=== PATIENT | female | born 1995 | race Caucasian/White ===

== ENCOUNTER 2020-09-12 18:49 | Emergency (ER) | payer BC, SELFPAY ==
[2020-09-12 18:55] VITALS: BP 120/74; PULSE 104; RESP 20; TEMP 37; O2SAT 96; BMI 40.7
[2020-09-12 19:09] LABS: UTC Strep Screen (Rapid) Positive (Negative)
--- NOTE | 2020-09-12 19:09 | HMH.EDUTC ---
[facility] Disposition Clinical Impression: Strep throat, Exposure to COVID-19 virus Disposition: Home, Self-Care Condition on Discharge: Good Instructions: DI for Strep Throat, Preventing the Spread of Coronavirus Discharge Instructions Additional Instructions: Drink plenty of fluids. Take tylenol or ibuprofen for pain or fever. Take the medications as directed. Follow up with your regular doctor. GO TO THE ER FOR ANY WORSENING SYMPTOMS Throw your tooth brush away and get a new one. Prescriptions: Ondansetron [Zofran 4mg ODT] 4 mg PO Q8HP PRN #12 tab.rapdis PRN Reason: Nausea Transmission Status: Received by [id number] Amoxicillin [Amoxicillin 500mg Tab] 500 mg PO TID 10 Days #30 tab Transmission Status: Received by [id number] Referrals: Gail Shankar MD [Primary Care Provider] - Forms: Work/School Release Time of Disposition: 19:11 Medical Decision Making - Medical Records Medical records reviewed: No: I reviewed the patient's medical records. - Jeremiah Inquiry Pt receiving controlled substance: No Vital Signs: 09/12/20 18:55 09/12/20 19:16 Temperature 98.6 F 98.6 F Temperature Source Oral Pulse Rate 104 H Pulse Rate [Left Brachial] 104 H Respiratory Rate 20 20 Blood Pressure 120/74 Blood Pressure [Left Arm] 120/74 Blood Pressure Mean [Left Arm] 89 Blood Pressure Source [Left Arm] Automatic Cuff Blood Pressure Position [Left Arm] Sitting 02 Sat by Pulse Oximetry 96 Oxygen Delivery Method Room Air - Lab Data Lab results reviewed: Yes: I reviewed the patient's lab results. Lab Results 09/12/20 19:05: Strep Scn Rapid [facility] Positive A Orders (Tests/Meds): ORDERS Category Date Time Status Covid-19 Nasal PCR Sendout P&C Stat Lab 09/12/20 19:00 Received [facility] HPI - General Stated complaint: COVID TEST-Sore throat,cough,headache Time Seen by Provider: 09/12/20 19:09 Mode of Arrival: Ambulatory Source of Information: Patient Limitations: No Limitations Description of Symptoms (Recalled from Triage Doc. by RN): PATIENT C/O SORE THROAT, HEADACHE, FEVER, AND COUGH SINCE YESTERDAY. REQUESTING COVID TEST HEENT Symptoms (Recalled from RN notes): Yes Resp Symptoms (Recalled from RN notes): Yes Skin Symptoms (Recalled from RN notes): No MS Symptoms (Recalled from RN notes): No Functional Status (Recalled from RN notes): WNL - History of Present Illness Provider Complaint: She states that for the past 1 day she has had low grade fever, sore throat, and a dry cough. 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 - Related Data Home Medications Medication Instructions Recorded Confirmed norgestrel-ethinyl estradioL 1 tab PO DAILY 09/12/20 09/12/20 [[id number] Tablet] Previous Rx's Medication Instructions Recorded Amoxicillin [Amoxicillin 500mg Tab] 500 mg PO TID 10 Days #30 tab 09/12/20 Ondansetron [Zofran 4mg ODT] 4 mg PO Q8HP PRN #12 tab.rapdis 09/12/20 Allergies Allergy/AdvReac Type Severity Reaction Status Date / Time No Known Allergies Allergy Verified 06/22/19 09:21 - Worker's Comp Is this a Worker's Comp case?: No [facility] History - Hepatitis A Screen Drug use history?: No High risk sexual behaviors?: No History of sexually transmitted infection?: No Currently employed?: No Childcare worker?: No Do you have indoor plumbing?: Yes Do you have electricity?: Yes Attestation statement:: This patient has been screened for Hepatitis A risk factors. I have reviewed the patient's past medical history: Yes - Social History Alcohol Intake: never Occupational Status: other Housing: house Household Members: family ROS Obtained: Yes All systems reviewed & no additional complaints - Constitutional Constitutional: Reports system reviewed and no additional complaints, except as docu - Eyes Eyes: Reports system reviewed and no additional complaints, except as docu
[2020-09-12 19:16] VITALS: BP 120/74; PULSE 104; RESP 20; TEMP 37; O2SAT 96
--- NOTE | 2020-09-15 15:18 | PC.NURSE ---
Patient notified of positive COVID results. Educated on quarantine.
== END 2020-09-12 19:20 | disposition home or self-care (01) ==
PROVIDERS: Emergency Provider Nurse Practitioner Family; PCP Family Medicine
DX: U07.1 COVID-19 (principal); J02.0 Streptococcal pharyngitis
CPT/HCPCS: 87880; 99202; U0003; U0004